=== PATIENT | female | born 1990 | race Two or more races ===

== ENCOUNTER 2024-12-22 17:12 | Emergency (ER) | payer SELFPAY ==
[2024-12-22 17:13] VITALS: BMI 43.5
[2024-12-22 17:23] VITALS: BMI 46.0
[2024-12-22 17:24] VITALS: BP 130/79; PULSE 95; RESP 18; TEMP 37.1; O2SAT 98
--- NOTE | 2024-12-22 17:49 | XR_ITS ---
Examination: Right hand 2 views TECHNIQUE: Right hand 2 views Date and time: December 22, 2024, 1810 hours INDICATIONS: Patient fell today with injury to the hand, hand pain. FINDINGS: No acute fracture No dislocation No foreign body Tiny old appearing bone density adjacent to the base of the proximal phalanx first digit, clinical correlation is advised IMPRESSION: No acute fracture
--- NOTE | 2024-12-22 17:49 | XR_ITS ---
Examination: Humerus 2 views right Technique: Humerus, AP lateral 2 views Date and time of exam: December 22, 2024 1800 hours INDICATIONS: Patient fell today with into the arm, right arm pain. FINDINGS: Humeral head and neck and shaft appear intact No shoulder dislocation IMPRESSION: No acute fracture
--- NOTE | 2024-12-22 17:49 | XR_ITS ---
Examination: Shoulder,right, 3 views Technique: Shoulder AP internal rotation, AP external rotation, Y view shoulder, 3 views Exam date and time :December 22, 2024, 1809 hours INDICATIONS: Patient fell today with injury to the shoulder, shoulder pain. FINDINGS: No shoulder fracture or dislocation No foreign body Impression: No shoulder fracture or dislocation
--- NOTE | 2024-12-22 17:49 | XR_ITS ---
Examination: Forearm, right, 2 views. Technique: Forearm, AP, lateral 2 views Date and time of exam: December 22, 2024 1809 hours INDICATIONS: Patient fell today with injury to the forearm,, forearm pain. FINDINGS: No acute fracture No dislocation No foreign body IMPRESSION: No acute fracture
--- NOTE | 2024-12-22 17:49 | XR_ITS ---
Examination: Right elbow 3 views Technique: Elbow AP, oblique, lateral 3 views Exam date and time: December 22, 2024 1800 hours INDICATIONS: Patient fell today with injury to the elbow, elbow pain. FINDINGS: No acute fracture No dislocation. No foreign body IMPRESSION: No fracture or dislocation.
--- NOTE | 2024-12-22 17:50 | EDNOTE_ITS ---
Upper Extremity Injury RME/HPI General Chief Complaint: Extremity Injury, Upper Stated Complaint: FELL, PAIN R) ARM Time Seen by Provider: 12/22/24 17:19 Arrival date/time: 12/22/24 17:12 This is a 34-year-old female that comes into the emergency room with complaints of fall. [place] her right shoulder. Patient having right shoulder, right elbow and forearm pain. Patient states she caught herself with her hand and also has been to her hand 2. Patient denies any other injuries. Patient denies past medical history. Patient denies loss of consciousness. Related Data Previous Rx's ?Medication ?Instructions ?Recorded ibuprofen 800 mg tablet 800 mg PO Q6H PRN pain #20 t abs 12/22/24 Allergies Allergy/AdvReac Type Severity Reaction Status Date / Time amoxicillin Allergy Intermediate Rash Verified 12/22/24 17:16 Review of Systems Review of Systems Systems Reviewed: All systems reviewed, normal except as documented Past Medical History Past Medical History Comments PMH COMMENT: denies ED Exam Narrative Physical exam: VITAL SIGNS: Reviewed. GENERAL APPEARANCE: Alert and interactive, follows commands, no acute distress HEAD AND FACE: Non-traumatic. ENT: PERRL, conjuctiva pink and clear, eyelid no trauma, Mucous membrane moist. NECK: Supple, nontender, no nuchal rigidity. CHEST: No tenderness, no crepitus, no paradoxical movement, no retractions. LUNGS: Clear, well ventilated, symmetric, no rales, no wheezing, no rhonchi, no stridor, good breath sounds bilaterally. HEART: Regular rate, regular rhythm, no murmur, no gallops. ABDOMEN: Soft, nondistended, no guarding, nontender NEUROLOGICAL: Gross motor function intact sensory function intact, Appropriate for age. MUSCULOSKELETAL: low back nontender, full range of motion. Mild pain with movement right shoulder, no obvious deformities, no pain over spinal processes EXTREMITIES: No redness no swelling no skin breakdown on bilateral foot and leg. Distal neurovascular status intact bilateral foot SKIN: Color pink, dry, no rash, no lacerations Course Quality Measures none Orders Category Date Time Status sling [Splint / Immobilizer] STAT Care 12/22/24 19:00 Completed XR elbow comp RT min 3V Stat Exams 12/22/24 17:49 Completed XR forearm RT 2V Stat Exams 12/22/24 17:49 Completed XR hand RT 2V Stat Exams 12/22/24 17:49 Completed XR humerus RT min 2V Stat Exams 12/22/24 17:49 Completed XR shoulder RT min 2V Stat Exams 12/22/24 17:49 Completed Acetaminophen Tab [Tylenol ES Tab] Med 12/22/24 17:49 Discontinued 1,000 mg PO X1 ONE HYDROcodone*/APAP 5/325 [[place] 5/325] Med 12/22/24 18:59 Discontinued 1 tab PO X1 ONE Ibuprofen Tab [Motrin Tab] Med 12/22/24 17:49 Discontinued 800 mg PO X1 ONE Ondansetron Odt [Zofran Odt] Med 12/22/24 18:59 Discontinued 4 mg PO X1 ONE Vital Signs Vital signs: Vital Signs Temperature 98.7 F 12/22/24 17:24 Pulse Rate 95 12/22/24 17:24 Respiratory Rate 18 12/22/24 17:24 Blood Pressure 130/79 12/22/24 17:24 Pulse Oximetry (%) 98 12/22/24 17:24 Oxygen Delivery Method Room Air 12/22/24 17:24 Extremity Injury MDM Narrative MDM Narrative:: right shoulder: FINDINGS: No shoulder fracture or dislocation No foreign body Impression: No shoulder fracture or dislocation right humerus: FINDINGS: Humeral head and neck and shaft appear intact No shoulder dislocation IMPRESSION: No acute fracture hand x ray: FINDINGS: No acute fracture No dislocation No foreign body Tiny old appearing bone density adjacent to the base of the proximal phalanx first digit, clinical correlation is advised IMPRESSION: No acute fracture Forearm: FINDINGS: No acute fracture No dislocation No foreign body IMPRESSION: No acute fracture elbow FINDINGS: No acute fracture No dislocation. No foreign body IMPRESSION: No fracture or dislocation. Today patient had xrays done. There was no acute fracture seen. Exam appeared unremarkable. I explained to patient at length that if there was continued pain to this area or worsened to come back to ED or see primary provider for more xrays or further testing such as CT scan or MRI. X rays are not perfect and sometimes serial films needed. Patient verbalized understanding. Patient states they will follow up with primary provider in 1-2 days or come back to ED if symptoms change or worsen. Patient verbalized understanding. Patient was given Tylenol ibuprofen for pain and it did help patient's pain. Patient still complaining of pain. Will give the patient [place] and send patient home. Patient data External records reviewed:: [facility] previous records Clinical information provided by:: patient Social determinants that could affect healthcare access:: none Patient has the following chronic illnesses:: None How is presenting disease/condition affected by chronic disease/condition?: no chronic disease Evaluation data The following diagnostics were reviewed and interpreted by me:: radiology exam(s) Lab and/or radiology exams considered but not ordered:: None Interpretation Summary: See note Medications / Prescriptions Medications or Prescriptions considered but not ordered:: None Medication administrations:: Medication Administration History Discontinued Medications Acetaminophen (Acetaminophen 500 Mg Tablet) 1,000 mg PO X1 ONE Stop: 12/22/24 17:50 Last Admin: 12/22/24 18:23 Dose: 1,000 mg Documented By: JOSE RAFAEL Hydrocodone Bitart/Acetaminophen (Hydrocodone/Apap 5/325 Tablet) 1 tab PO X1 ONE Stop: 12/22/24 19:00 Last Admin: 12/22/24 19:12 Dose: 1 tab Documented By: ZEINA Ibuprofen (Ibuprofen Tab 400 Mg Tablet) 800 mg PO X1 ONE Stop: 12/22/24 17:50 Last Admin: 12/22/24 18:23 Dose: 800 mg Documented By: JOSE RAFAEL Ondansetron HCl (Ondansetron Odt 4 Mg Tabrap) 4 mg PO X1 ONE; Protocol Stop: 12/22/24 19:00 Last Admin: 12/22/24 19:12 Dose: 4 mg Documented By: ZEINA See [facility] Consultations Consultation(s) initiated? (list below): No Diagnosis Upper Extremity Injury Differential Diagnosis: sprain and strain of wrist, fracture of wrist, finger sprain and dislocation of shoulder Most likely diagnosis given after review of the tests above:: Contusions Admission Indicated Admission indicated?: not indicated Admission Request Was there a request for admission?: No Disposition Plan Disposition Plan: Discharge Discharge Attestation Discharge Attestation: The patient and all family members were given an opportunity to ask questions and understood the discharge instructions. Discharge instructions specifically effects, indications for sooner follow up or return to the emergency department, and the expected course of current diagnosis. Patient condition: Stable Discharge Plan Plan Patient Disposition: HOME (Self Care) Patient condition on transfer: Stable Prescriptions/Referrals Prescriptions/Med Rec: New ibuprofen 800 mg tablet 800 mg PO Q6H PRN (Reason: pain) Qty: 20 0RF Referrals: No Primary/Family,Physician [Primary Care Provider] - In 1 week Problem List Clinical Impression: Contusion of right shoulder, Contusion of elbow, Contusion of hand Patient/Caregiver Discharge Instructions Discharge Activity: activity as tolerated Education Materials: Bruises (Contusions), ED Contusion, Upper Extremity Additional Instructions: Follow up with primary provider in 1-2 days. Come back to ED if symptoms change or worsen Print Language: [place] Stand Alone Forms: Rocio Award Info., Patient Portal Info Letter PA/PRODUCTION MANUFACTURING WORKER Supervising Physician PA/PRODUCTION MANUFACTURING WORKER Supervising Physician: christiano
[2024-12-22] MEDS: IBUPROFEN TAB 400 MG TABLET 800 MG PO (18:23)
[2024-12-22] MEDS: ACETAMINOPHEN 500 MG TABLET 1000 MG PO (18:23)
[2024-12-22 18:42] VITALS: BP 142/93; PULSE 86; RESP 18; TEMP 36.6; O2SAT 98
[2024-12-22] MEDS: ONDANSETRON ODT 4 MG TABRAP PO (19:12)
[2024-12-22] MEDS: HYDROcodone/APAP 5/325 TABLET 1 TAB PO (19:12)
== END 2024-12-22 19:24 | disposition home or self-care (01) ==
PROVIDERS: Emergency Provider Emergency Medicine
DX: S40.011A Contusion of right shoulder, initial encounter (principal); S50.01XA Contusion of right elbow, initial encounter; S60.221A Contusion of right hand, initial encounter; S59.911A Unspecified injury of right forearm, initial encounter; W01.0XXA Fall on same level from slipping, tripping and stumbling without subsequent striking against object, initial encounter; Y92.828 Other wilderness area as the place of occurrence of the external cause
CPT/HCPCS: 73030; 73060; 73080; 73090; 73120; 99284; Q0162; A9270